=== PATIENT | male | born 1980 | race African-American/Black ===

== ENCOUNTER 2024-05-22 01:35 | Emergency (ER) | payer OTHER ==
[2024-05-22] MEDS: Benzocaine 20% Topical Spray UD MUCMEM ONE (02:17)
[2024-05-22] MEDS: Lidocaine 2% Viscous Solution 15 ML UD PO ONE (02:17)
[2024-05-22] MEDS: Ketorolac 30 MG/ML SDV IM ONE (02:17)
[2024-05-22] MEDS: Amoxicillin/Clavulanate K 875-125 MG Tab PO ONE (02:18)
[2024-05-22] MEDS: Acetaminophen 325 MG Tab PO ONE (02:18)
== END 2024-05-22 02:22 | disposition home or self-care (01) ==
LOC: MW.ED 01:35
DX: K08.89 Other specified disorders of teeth and supporting structures (principal); R03.0 Elevated blood-pressure reading, without diagnosis of hypertension; Z79.2 Long term (current) use of antibiotics; Z79.891 Long term (current) use of opiate analgesic
CPT/HCPCS: 96372; 99282; A9270; J1885; 99283